=== PATIENT | male | born 1965 ===

== ENCOUNTER → 2016-09-11 | Day surgery (SDC) | payer BC ==
[2016-09-11] VITALS (9 sets, daily range): BP systolic 121–142; BP diastolic 59–94
[~2016-09-11] VITALS: Ht 172.7 cm; Wt 83.9 kg
[~2016-09-11] MED LIST: LR 1000ml ONE; Lidocaine 1% MPF 10mg/ml 5ml ONE; NKM; Propofol 10mg/ml 20ml IV ONE
[2016-09-11 08:42] LABS: BASOPHILS % (AUTO) 1.2 % (0.0-2.0); LYMPHOCYTES % (AUTO) 19.3 % (20.0-45.0); MEAN CORPUSCULAR HEMOGLOBIN 29.1 PG (27.0-31.0); MEAN CORPUSCULAR VOLUME 83 FL (80-99); MONOCYTES % (AUTO) 8.1 % (1.0-10.0); NEUTROPHILS % (AUTO) 65.3 % (45.0-75.0); PLATELET COUNT 203 K/UL (150-450); RED BLOOD COUNT 5.89 M/UL (4.70-6.10); RED CELL DISTRIBUTION WIDTH 11.6 % (11.6-14.8); WHITE BLOOD COUNT 9.1 K/UL (4.8-10.8)
--- NOTE | 2016-09-11 08:58 | Pre-Procedure Note/Attestation ---
Pre-Procedure Note/Attestation Complete Prior to Procedure Planned Procedure: not applicable Procedure Narrative: colon Indications for Procedure Pre-Operative Diagnosis: screen Attestation I attest that I discussed the nature of the procedure; its benefits; risks and complications; and alternatives (and the risks and benefits of such alternatives ), prior to the procedure, with the patient (or the patient's legal life assurance representative). I attest that, if there was a reasonable possibility of needing a blood transfusion, the patient (or the patient's legal life assurance representative) was given the [facility] standardized written summary, pursuant to the [place] Blood Safety Act ([place] Health and Safety Code # 1645, as amended). I attest that I re-evaluated the patient just prior to the surgery and that there has been no change in the patient's H&P, except as documented below: DINA SUAZO Sep 11, 2016 08:58
--- NOTE | 2016-09-11 08:59 | Short Stay Surgery H&P ---
History of Present Illness History of Present Illness Chief Complaint see typed H&P HPI David Alfreda Garzon is a 51 year old male who was admitted on for Colon Screening Patient History Allergies: Coded Allergies: NO KNOWN ALLERGIES (Verified Allergy, Unknown, 09/08/16) PAST MEDICAL HISTORY: Past Surgeries: Social History: Medication History Scheduled No Known Medications* (NKM - No Known Medications*), 0 ., (Reported) Physical Exam Vital Signs Last Vital Signs Date Time Temp Pulse Resp B/P Pulse Ox O2 Delivery O2 Flow Rate FiO2 09/11/16 07:37 97.2 68 18 122/82 99 Room Air Labs Laboratory Tests Test 09/11/16 08:35 White Blood Count 9.1 K/UL (4.8-10.8) Red Blood Count 5.89 M/UL (4.70-6.10) Hemoglobin 17.1 G/DL (14.2-18.0) Hematocrit 48.9 % (42.0-52.0) Mean Corpuscular Volume 83 FL (80-99) Mean Corpuscular Hemoglobin 29.1 PG (27.0-31.0) Mean Corpuscular Hemoglobin Concent 35.0 G/DL (32.0-36.0) Red Cell Distribution Width 11.6 % (11.6-14.8) Platelet Count 203 K/UL (150-450) Mean Platelet Volume 8.0 FL (6.5-10.1) Neutrophils (%) (Auto) 65.3 % (45.0-75.0) Lymphocytes (%) (Auto) 19.3 % (20.0-45.0) L Monocytes (%) (Auto) 8.1 % (1.0-10.0) Eosinophils (%) (Auto) 6.0 % (0.0-3.0) H Basophils (%) (Auto) 1.2 % (0.0-2.0) Plan Attestation Are the patient's medical conditions optimized for surgery? DINA SUAZO Sep 11, 2016 08:59
--- NOTE | 2016-09-11 09:40 | Anethesia Preoperative Eval ---
Anesthesia Pre-op PMH/ROS General Date of Evaluation: Sep 11, 2016 Time of Evaluation: 09:38 Anesthesiologist: jasen ASA Score: ASA 2 Mallampati Score Class I : Soft palate, uvula, fauces, pillars visible Class II: Soft palate, uvula, fauces visible Class III: Soft palate, base of uvula visible Class IV: Only hard plate visible Mallampati Classification: Class II Surgeon: shashi Diagnosis: colon screenin Surgical Procedure: Colonoscopy Anesthesia History: none Family History: no anesthesia problems Allergies: Coded Allergies: NO KNOWN ALLERGIES (Verified Allergy, Unknown, 09/08/16) Medications: see eMAR Past Medical History Cardiovascular: Denies: CAD, HTN, ID, arrhythmia, other, valve dz Pulmonary: Denies: COPD, SARAH, asthma, other Gastrointestinal/Genitourinary: Denies: CRI, ESRD, GERD, other Neurologic/Psychiatric: Reports: depression/anxiety Endocrine: Denies: DM, hypothyroidism, other, steroids HEENT: Denies: [place] (L), [place] (R), cataract (L), cataract (R), glaucoma, other Hematology/Immune: Denies: DVT, anemia, bleeding disorder, other Musculoskeletal/Integumentary: Denies: DDD, DJD, OA, RA, edema, other PMH Narrative: cataract surgery Anesthesia Pre-op Phys. Exam Physician Exam Last Vital Signs Date Time Temp Pulse Resp B/P Pulse Ox O2 Delivery O2 Flow Rate FiO2 09/11/16 09:28 97.2 72 20 142/94 98 Room Air Constitutional: NAD Neurologic: CN 2-12 intact Cardiovascular: RRR Respiratory: CTA Gastrointestinal: S/NT/ND Airway Exam Mallampati Score: Class II MO: full ROM: full Dentures: no lower, no upper Anesthesia Pre-op A/P Labs Hematology Test 09/11/16 08:35 White Blood Count 9.1 K/UL (4.8-10.8) Red Blood Count 5.89 M/UL (4.70-6.10) Hemoglobin 17.1 G/DL (14.2-18.0) Hematocrit 48.9 % (42.0-52.0) Mean Corpuscular Volume 83 FL (80-99) Mean Corpuscular Hemoglobin 29.1 PG (27.0-31.0) Mean Corpuscular Hemoglobin Concent 35.0 G/DL (32.0-36.0) Red Cell Distribution Width 11.6 % (11.6-14.8) Platelet Count 203 K/UL (150-450) Mean Platelet Volume 8.0 FL (6.5-10.1) Neutrophils (%) (Auto) 65.3 % (45.0-75.0) Lymphocytes (%) (Auto) 19.3 % (20.0-45.0) L Monocytes (%) (Auto) 8.1 % (1.0-10.0) Eosinophils (%) (Auto) 6.0 % (0.0-3.0) H Basophils (%) (Auto) 1.2 % (0.0-2.0) Studies Pre-op Studies: EKG - s Risk Assessment & Plan Plan: mac Status Change Before Surgery: No Pre-Antibiotics Drug: none NETTIE ANTHONY CRNA Sep 11, 2016 09:40
--- NOTE | 2016-09-11 09:41 | Immediate Post-Op Evaluation ---
Immediate Post-Op Evalulation Immediate Post-Op Evalulation Procedure: colonoscopy Date of Evaluation: Sep 11, 2016 Time of Evaluation: 09:40 IV Fluids: 200 Blood Pressure Systolic: 134 Blood Pressure Diastolic: 75 Pulse Rate: 74 Respiratory Rate: 14 O2 Sat by Pulse Oximetry: 99 Temperature (Fahrenheit): 97.5 Nausea: No Vomiting: No Complications none Patient Status: awake, patent Hydration Status: adequate Drug: none NETTIE ANTHONY CRNA Sep 11, 2016 09:41
--- NOTE | 2016-09-11 10:19 | 48 Hour Post Anesthesia Eval ---
Post Anesthesia Evaluation Procedure: colonoscopy Date of Evaluation: Sep 11, 2016 Time of Evaluation: 10:19 Blood Pressure Systolic: 131 0: 91 Pulse Rate: 65 O2 Sat by Pulse Oximetry: 99 Airway: patent Nausea: No Vomiting: No Hydration Status: adequate Mental Status/LOC: patient returned to baseline Post-Anesthesia Complications: none NETTIE ANTHONY CRNA Sep 11, 2016 10:19
--- NOTE | 2016-09-11 15:27 | Operative Note - Dictated ---
DATE OF OPERATION: 09/11/2016 PROCEDURE: Screening colonoscopy. SURGEON: Hien Motta M.D. ANESTHESIA: Please see the separate notes for details. PRE-ENDOSCOPIC DIAGNOSIS: Screening. POST-ENDOSCOPIC DIAGNOSIS: Normal colonoscopy except for mild incidental internal hemorrhoids. DESCRIPTION OF PROCEDURE: The procedure, its risks, indications, alternatives, and possible complications including, but not limited to, bleeding, infection, perforation, , and anesthesia complications were explained to the patient and informed consent was obtained. The patient was then sedated in the left lateral decubitus position. A rectal exam was done, which was unremarkable. The colonoscope was introduced into the rectum and advanced to the cecum without difficulty. The cecum was identified by the appearance of the ileocecal valve and appendiceal orifice. The colonoscope was then gradually withdrawn and the mucosa examined carefully. Examination of colonic mucosa did not reveal any abnormalities. Retroflexed view of the rectum revealed mild internal hemorrhoids. The colonoscope was removed and the patient was sent to recovery in good condition. COMPLICATIONS: None. RECOMMENDATIONS: 1. Resume oral diet. 2. High fiber intake. 3. Outpatient followup. Hien Motta M.D. DR: FRANCESCO JOB#: [id number] CC: Hien Motta M.D.; Fax#: [phone] [facility]
--- NOTE | 2016-09-21 10:27 | Brief Operative Note ---
Immediate Post Operative Note Operative Note Chief Complaint: screen Pre-op Diagnosis: screen Procedure: colon Surgeon: cy Anesthesiologist: see report Anesthesia: moderate sedation Specimen: none Complications: none Condition: stable Estimated Blood Loss: none Drains: none Implant(s) used?: No DINA SUAZO Sep 21, 2016 10:27
== END | disposition home or self-care (01) ==
LOC: GAS 07:09
DX: Z12.11 Encounter for screening for malignant neoplasm of colon (principal); K64.8 Other hemorrhoids; I10 Essential (primary) hypertension; F32.9 Major depressive disorder, single episode, unspecified; F41.9 Anxiety disorder, unspecified; F17.290 Nicotine dependence, other tobacco product, uncomplicated
CPT/HCPCS: 36415; 85025; 94003; 94150